=== PATIENT | female | born 1955 | race Caucasian/White ===

== ENCOUNTER 2023-11-30 10:44 | Emergency (ER) | payer MEDICARE, BC ==
[~2023-11-30] VITALS: Ht 167.6 cm; Wt 100.0 kg
[2023-11-30 10:45] VITALS: TEMP 98.1
[2023-11-30] MEDS ORDERED: TRAZ-257 PO (10:55)
[2023-11-30] MEDS ORDERED: LISI10TA22 PO (10:55)
[2023-11-30] MEDS ORDERED: LEXA5TAB13 PO (10:56)
[2023-11-30] MEDS ORDERED: CETI-24 PO (10:56)
[2023-11-30] MEDS: ACETAMINOPHEN 500 MG TAB PO ONE (12:24)
[2023-11-30] MEDS: BOOSTRIX VACCINE (TETANUS/DIPHTH/ACEL. PERTUSSIS) 0.5ML SYR IM ONE (12:25)
[2023-11-30] MEDS: ONDANSETRON 4MG 2ML VIAL IV ONE (13:41)
[2023-11-30] MEDS: MORPHINE 2 MG/ML 1ML VIAL IV ONE (13:41)
[2023-11-30 13:52] LABS: BASO % 0.3 % (0.0-1.0); EOS % 0.1 % (0.0-3.0); HEMATOCRIT 42.8 % (36.0-47.0); HEMOGLOBIN 14.5 g/dl (12.0-15.5); LYMPH # 1.3 10^3/uL (1.5-5.0); LYMPH % 8.8 % (24.0-44.0); MEAN CORPUSCULAR HEMOGLOBIN 32.1 pg (27.0-33.0); MEAN CORPUSCULAR HGB CONC 33.9 g/dl (32.0-36.5); MEAN CORPUSCULAR VOLUME 94.7 fl (80.0-96.0); MONO # 0.8 10^3/uL (0.0-0.8); MONO % 5.7 % (2.0-8.0); NEUTROPHILS # 12.3 10^3/uL (1.5-8.5); NEUTROPHILS % 84.5 % (36.0-66.0); PLATELET COUNT, AUTOMATED 236 10^3/uL (150-450); RED BLOOD COUNT 4.52 10^6/uL (4.00-5.40); WHITE BLOOD COUNT 14.5 10^3/uL (4.0-10.0)
[2023-11-30 14:05] LABS: INR 0.99; PARTIAL THROMBOPLASTIN TIME 29.2 SECONDS (24.8-34.2); PROTHROMBIN TIME 12.8 SECONDS (12.5-14.5)
[2023-11-30 14:12] LABS: BLOOD UREA NITROGEN 17 MG/DL (9-23); CALCIUM LEVEL 9.3 MG/DL (8.3-10.6); CARBON DIOXIDE LEVEL 25 MMOL/L (20-31); CHLORIDE LEVEL 105 MMOL/L (98-107); GLOMERULAR FILTRATION RATE > 60.0 (>45); GLUCOSE, FASTING 107 MG/DL (74-106); POTASSIUM SERUM 4.2 MMOL/L (3.5-5.1); SODIUM LEVEL 139 MMOL/L (136-145)
[2023-11-30 14:17] LABS: RSV AMPLIFICATION NEGATIVE (NEGATIVE)
[2023-11-30 14:50] VITALS: BP 175/78; O2SAT 98
== END 2023-11-30 15:16 | disposition short-term general hospital (02) ==
LOC: M ED 10:44
DX: S12.401A Unspecified nondisplaced fracture of fifth cervical vertebra, initial encounter for closed fracture (principal); S50.01XA Contusion of right elbow, initial encounter; W01.10XA Fall on same level from slipping, tripping and stumbling with subsequent striking against unspecified object, initial encounter; Y92.481 Parking lot as the place of occurrence of the external cause; Y93.9 Activity, unspecified; Y99.9 Unspecified external cause status
CPT/HCPCS: 70450; 72125; 80048; 85025; 85610; 85730; 87631; 90471; 90715; 96374; 96375; 99284; J2405